=== PATIENT | male | born 1930 | race Caucasian/White ===

== ENCOUNTER 2016-10-28 05:27 | Inpatient (IN) | payer OTHER ==
[~2016-10-28] VITALS: Ht 167.6 cm; Wt 59.0 kg
[2016-10-28] MEDS ORDERED: NITROGLYCERIN OINT 1GM/INCH UDPKT TD STA (05:30)
[2016-10-28] MEDS ORDERED: ENALAPRIL 2.5MG/2ML VIAL 2ML IV STA (05:30)
[2016-10-28] MEDS ORDERED: FUROSEMIDE 40MG/4ML VIAL IV STA (05:30)
[2016-10-28] MEDS ORDERED: ASPIRIN 81MG TABLET PO STA (05:30)
[2016-10-28 05:50] LABS: BASOPHILS % 0.8 % (0.0-2.0); EOSINOPHILS % 3.5 % (0.0-5.0); HEMATOCRIT. 49.2 % (42.0-52.0); HEMOGLOBIN. 16.3 g/dL (14.0-18.0); LYMPHOCYTES % 32.1 % (20.0-50.0); MEAN CORPUSCULAR HEMOGLOBIN 29.8 pg (28.0-32.0); MEAN CORPUSCULAR VOLUME 90.3 fL (80.0-94.0); MEAN PLATELET VOLUME 9.3 fl (7.4-10.4); MONOCYTES % 4.9 % (2.0-8.0); NEUTROPHILS % 58.7 % (40.0-76.0); PLATELET 289 x1000/uL (130-400); RED BLOOD CELL COUNT 5.45 mill/uL (4.7-6.1); RED CELL DISTRIBUTION WIDTH 14.6 % (11.6-14.6); WHITE BLOOD COUNT 19.1 x1000/uL (4.5-11.0)
[2016-10-28 06:00] LABS: PARTIAL THROMBOPLASTIN TIME 24.5 sec (24.0-34.0); PROTHROMBIN TIME 10.6 sec
[2016-10-28 06:13] LABS: ANION GAP 15; CARBON DIOXIDE 22 mEq/L (21-32); CHLORIDE 107 mEq/L (98-107); UREA NITROGEN BLOOD 35 mg/dL (7-21); eGFR > 60 mL/min (>60)
[2016-10-28 06:14] LABS: ALBUMIN 3.5 g/dL (3.4-5.0); CALCIUM 8.6 mg/dL (8.5-10.1)
[2016-10-28 06:15] LABS: ALANINE AMINOTRANSFERASE 304 IU/L (13-61)
[2016-10-28 06:16] LABS: LIPASE 314 IU/L (73-393); NT PRO B-TYPE NATRIURETIC PEP 4847 pg/mL (5-125)
[2016-10-28] MEDS ORDERED: IPRATROPIUM/ALBUTEROL 0.5-3(2.5)MG/3ML NEB INH PRN (10:15)
[2016-10-28] MEDS ORDERED: DOCUSATE SODIUM 100MG CAPSULE PO PRN (10:15)
[2016-10-28] MEDS ORDERED: ENOXAPARIN 40MG/0.4ML SYR SUBCUT SCH (10:15)
[2016-10-28] MEDS ORDERED: NITROGLYCERIN 0.4MG TABLET SL SL PRN (10:15)
[2016-10-28] MEDS ORDERED: ZOLPIDEM TARTRATE 5MG TABLET PO PRN (10:15)
[2016-10-28] MEDS ORDERED: LORAZEPAM 2MG/ML CPJ IV PRN (10:15)
[2016-10-28] MEDS ORDERED: ONDANSETRON HCL 4MG/2ML VIAL IV PRN (10:15)
[2016-10-28] MEDS ORDERED: ACETAMINOPHEN 325MG TABLET PO PRN (10:15)
[2016-10-28] MEDS ORDERED: NA PHOS,M-B/NA PHOS,DI-BA ENEMA 118ML PR PRN (10:15)
[2016-10-28] MEDS ORDERED: CLONIDINE 0.1MG TABLET PO PRN (10:15)
[2016-10-28] MEDS ORDERED: TRAMADOL 50MG TABLET PO PRN (10:15)
[2016-10-28] MEDS ORDERED: GUAIFENESIN 200MG/10ML SUGAR FREE UDC PO PRN (10:15)
[2016-10-28] MEDS ORDERED: AZITHROMYCIN 500 MG in DEXT 5% WATER 250 ML IV SCH (10:15)
[2016-10-28] MEDS ORDERED: MAGNESIUM/ALUMINUM HYDROXIDE/SIMETHICONE 30ML UDC PO PRN (10:15)
[2016-10-28] MEDS ORDERED: DIPHENHYDRAMINE 50MG/ML VIAL IV PRN (10:15)
[2016-10-28] MEDS: LOSARTAN POTASSIUM 25 MG TABLET PO SCH ×2 (11:30→20:51)
[2016-10-28] MEDS: AMLODIPINE 2.5MG TABLET PO SCH ×2 (11:30→20:51)
[2016-10-28 12:05] LABS: BG BASE EXCESS -1.9 mmol/L (-2.0-2.0); BG CARBOXYHEMOGLOBIN 0.6 % (0.5-1.5); BG DEOXYHEMOGLOBIN 12.2 % (0.0-5.0); BG HCO3 ACT 20.8 mmol/L (22.0-26.0); BG OXYGEN SATURATION 87.7 % (92.0-98.5); BG OXYHEMOGLOBIN 87.2 % (94.0-97.0); BG PCO2 30.5 mmHg (35.0-45.0); BG PH 7.451 (7.350-7.450); BG PO2 48.7 mmHg (75.0-100.0); BG SAMPLE SITE RIGHT RADIAL; BG TOTAL HEMOGLOBIN 15.7 g/dL (12.0-18.0); BG VENT MODE ROOM AIR
[2016-10-28] MEDS: ENOXAPARIN 60MG/0.6ML SYR SUBCUT SCH ×2 (12:16→20:50)
[2016-10-28 14:05] LABS: GLUCOSE URINE NEGATIVE (NEGATIVE); KETONES URINE NEGATIVE (NEGATIVE); LEUKOCYTE ESTERASE URINE NEGATIVE (NEGATIVE); NITRITE URINE NEGATIVE (NEGATIVE); OCCULT BLOOD URINE TRACE (NEGATIVE); PROTEIN URINE NEGATIVE (NEGATIVE); UROBILINOGEN URINE 0.2 E.U./dL (0.2-1.0)
[2016-10-28 14:12] LABS: CLARITY URINE CLEAR (CLEAR); COLOR URINE YELLOW (YELLOW)
[2016-10-28 14:32] VITALS: BP_SYST 115; BP_SYST 140; BP_DIAS 64; BP_DIAS 80
[2016-10-28 14:42] LABS: BACTERIA URINE NONE SEEN; RBC URINE 0-2 /hpf (0-2); SQUAMOUS EPITHELIAL CELL URINE RARE /lpf (RARE/1+); WBC URINE NONE SEEN /hpf (0-2)
[2016-10-28 15:11] VITALS: BP 115/64
[2016-10-28 16:00] VITALS: BP 115/64
[2016-10-28 16:48] LABS: CREATINE KINASE MB FRACTION 5.2 ng/mL (0.5-3.6)
[2016-10-28 16:50] LABS: TROPONIN I 0.81 ng/mL (0.00-0.04)
[2016-10-28] MEDS ORDERED: CARVEDILOL 3.125 MG TABLET PO SCH (18:00)
[2016-10-28] MEDS: NITROGLYCERIN OINT 1GM/INCH UDPKT TD SCH (18:00)
[2016-10-28] MEDS: FUROSEMIDE 40MG/4ML VIAL IVP SCH (18:17)
[2016-10-28 18:18] VITALS: BP 132/87
[2016-10-28 20:00] VITALS: BP 101/67
[2016-10-28] MEDS: SPIRONOLACTONE 25MG TABLET PO SCH (20:50)
[2016-10-28] MEDS ORDERED: METOPROLOL TARTRATE 25MG TABLET PO SCH (21:00)
[2016-10-29] VITALS: BP 117/61
[2016-10-29] MEDS: NITROGLYCERIN OINT 1GM/INCH UDPKT TD SCH ×4 (00:19→18:12)
[2016-10-29 04:00] VITALS: BP 99/49
[2016-10-29 07:13] LABS: CHLORIDE 107 mEq/L (98-107); INDEX HEMOLYSI 3 (1-3); INDEX ICTERIC 1 (1-4); INDEX LIPEMIC 1 (1-3)
[2016-10-29 07:44] LABS: BASOPHILS % 0.6 % (0.0-2.0); EOSINOPHILS % 0.3 % (0.0-5.0); HEMATOCRIT. 39.8 % (42.0-52.0); HEMOGLOBIN. 13.4 g/dL (14.0-18.0); MEAN CORPUSCULAR HEMOGLOBIN 29.8 pg (28.0-32.0); MEAN CORPUSCULAR HGB CONC 33.7 g/dL (31.0-37.0); MEAN CORPUSCULAR VOLUME 88.5 fL (80.0-94.0); MEAN PLATELET VOLUME 9.6 fl (7.4-10.4); NEUTROPHILS % 73.1 % (40.0-76.0); PLATELET 231 x1000/uL (130-400); RED BLOOD CELL COUNT 4.49 mill/uL (4.7-6.1); RED CELL DISTRIBUTION WIDTH 14.5 % (11.6-14.6)
[2016-10-29 07:49] LABS: ALANINE AMINOTRANSFERASE 180 IU/L (13-61); ALBUMIN 2.5 g/dL (3.4-5.0); ANION GAP 14; CALCIUM 8.3 mg/dL (8.5-10.1); CARBON DIOXIDE 25 mEq/L (21-32); CREATINE KINASE 91 IU/L (39-308); CREATINE KINASE MB FRACTION 1.6 ng/mL (0.5-3.6); HDL CHOLESTEROL 64 mg/dL (40-59); MAGNESIUM 2.1 mg/dL (1.8-2.4); NT PRO B-TYPE NATRIURETIC PEP 17610 pg/mL (5-125); TRIGLYCERIDE 48 mg/dL (0-150); UREA NITROGEN BLOOD 36 mg/dL (7-21); eGFR 52 mL/min (>60)
[2016-10-29 07:50] LABS: LDL CHOLESTEROL 59 mg/dL (5-100)
[2016-10-29 08:43] LABS: TROPONIN I 0.53 ng/mL (0.00-0.04)
[2016-10-29 08:49] VITALS: BP 123/74
[2016-10-29] MEDS ORDERED: CEFTRIAXONE 1 G PREMIX 50 ML IV SCH (09:00)
[2016-10-29] MEDS: FUROSEMIDE 40MG/4ML VIAL IVP SCH ×2 (09:13→17:13)
[2016-10-29] MEDS: LOSARTAN POTASSIUM 25 MG TABLET PO SCH ×2 (09:14→21:59)
[2016-10-29] MEDS: PANTOPRAZOLE SODIUM 40 MG/VIAL IV SCH (09:14)
[2016-10-29] MEDS: SPIRONOLACTONE 25MG TABLET PO SCH ×2 (09:14→21:59)
[2016-10-29] MEDS: AMLODIPINE 2.5MG TABLET PO SCH ×2 (09:15→22:00)
[2016-10-29] MEDS: ZINC SULFATE 220 MG ( 50 ) CAPSULE PO SCH (09:15)
[2016-10-29] MEDS: ASPIRIN 325MG EC TABLET PO SCH (09:15)
[2016-10-29] MEDS: ENOXAPARIN 60MG/0.6ML SYR SUBCUT SCH ×2 (09:24→22:00)
[2016-10-29 12:00] VITALS: BP 132/70
[2016-10-29] MEDS: AZITHROMYCIN 500 MG in DEXT 5% WATER 250 ML IV SCH (13:47)
[2016-10-29 16:44] VITALS: BP 114/55
[2016-10-29 20:00] VITALS: BP 140/68
[2016-10-30] VITALS (7 sets, daily range): BP systolic 112–129; BP diastolic 59–74
[2016-10-30] MEDS: NITROGLYCERIN OINT 1GM/INCH UDPKT TD SCH ×4 (00:16→18:43)
[2016-10-30] MEDS: FUROSEMIDE 40MG/4ML VIAL IVP SCH (06:22)
[2016-10-30] MEDS: CEFTRIAXONE 1 G PREMIX 50 ML IV SCH (08:36)
[2016-10-30] MEDS: PANTOPRAZOLE SODIUM 40 MG/VIAL IV SCH (08:37)
[2016-10-30] MEDS: AMLODIPINE 2.5MG TABLET PO SCH ×2 (08:37→21:00)
[2016-10-30] MEDS: ZINC SULFATE 220 MG ( 50 ) CAPSULE PO SCH (08:37)
[2016-10-30] MEDS: ENOXAPARIN 60MG/0.6ML SYR SUBCUT SCH ×2 (08:37→21:13)
[2016-10-30] MEDS: LOSARTAN POTASSIUM 25 MG TABLET PO SCH (08:38)
[2016-10-30] MEDS: SPIRONOLACTONE 25MG TABLET PO SCH ×2 (08:38→21:12)
[2016-10-30] MEDS: ASPIRIN 325MG EC TABLET PO SCH (08:38)
[2016-10-30 09:11] LABS: BASOPHILS % 0.6 % (0.0-2.0); EOSINOPHILS % 0.6 % (0.0-5.0); HEMATOCRIT. 40.2 % (42.0-52.0); HEMOGLOBIN. 13.6 g/dL (14.0-18.0); LYMPHOCYTES % 17.2 % (20.0-50.0); MEAN CORPUSCULAR HEMOGLOBIN 29.6 pg (28.0-32.0); MEAN CORPUSCULAR HGB CONC 33.7 g/dL (31.0-37.0); MEAN CORPUSCULAR VOLUME 87.8 fL (80.0-94.0); MEAN PLATELET VOLUME 9.1 fl (7.4-10.4); MONOCYTES % 9.1 % (2.0-8.0); NEUTROPHILS % 72.5 % (40.0-76.0); PLATELET 247 x1000/uL (130-400); RED BLOOD CELL COUNT 4.58 mill/uL (4.7-6.1); RED CELL DISTRIBUTION WIDTH 13.9 % (11.6-14.6); WHITE BLOOD COUNT 12.8 x1000/uL (4.5-11.0)
[2016-10-30 09:34] LABS: ALANINE AMINOTRANSFERASE 111 IU/L (13-61); ALBUMIN 2.8 g/dL (3.4-5.0); ANION GAP 10; CALCIUM 8.9 mg/dL (8.5-10.1); CARBON DIOXIDE 35 mEq/L (21-32); CHLORIDE 99 mEq/L (98-107); INDEX HEMOLYSI 1 (1-3); INDEX ICTERIC 1 (1-4); INDEX LIPEMIC 1 (1-3); MAGNESIUM 2.2 mg/dL (1.8-2.4); NT PRO B-TYPE NATRIURETIC PEP 6309 pg/mL (5-125); UREA NITROGEN BLOOD 38 mg/dL (7-21); eGFR 44 mL/min (>60)
[2016-10-30] MEDS: AZITHROMYCIN 500 MG in DEXT 5% WATER 250 ML IV SCH (10:24)
[2016-10-30] MEDS ORDERED: REGADENOSON 0.4 MG/5 ML IV ONE (14:45)
[2016-10-31] VITALS: BP 112/58
[2016-10-31] MEDS: NITROGLYCERIN OINT 1GM/INCH UDPKT TD SCH ×3 (00:43→12:00)
[2016-10-31 04:00] VITALS: BP 103/45
[2016-10-31 07:15] LABS: BASOPHILS % 0.7 % (0.0-2.0); EOSINOPHILS % 2.8 % (0.0-5.0); HEMATOCRIT. 40.1 % (42.0-52.0); HEMOGLOBIN. 13.6 g/dL (14.0-18.0); MEAN CORPUSCULAR HEMOGLOBIN 29.6 pg (28.0-32.0); MEAN CORPUSCULAR HGB CONC 33.9 g/dL (31.0-37.0); MEAN CORPUSCULAR VOLUME 87.5 fL (80.0-94.0); MEAN PLATELET VOLUME 9.1 fl (7.4-10.4); MONOCYTES % 9.2 % (2.0-8.0); NEUTROPHILS % 64.3 % (40.0-76.0); PLATELET 251 x1000/uL (130-400); RED BLOOD CELL COUNT 4.59 mill/uL (4.7-6.1); RED CELL DISTRIBUTION WIDTH 13.8 % (11.6-14.6); WHITE BLOOD COUNT 10.4 x1000/uL (4.5-11.0)
[2016-10-31 08:07] VITALS: BP 117/62
[2016-10-31] MEDS ORDERED: REGADENOSON 0.4 MG/5 ML IV ONE (08:22)
[2016-10-31 08:44] LABS: ALANINE AMINOTRANSFERASE 75 IU/L (13-61); ALBUMIN 2.6 g/dL (3.4-5.0); ANION GAP 16; CALCIUM 8.3 mg/dL (8.5-10.1); CARBON DIOXIDE 28 mEq/L (21-32); CHLORIDE 98 mEq/L (98-107); INDEX HEMOLYSI 1 (1-3); INDEX ICTERIC 1 (1-4); INDEX LIPEMIC 1 (1-3); MAGNESIUM 2.3 mg/dL (1.8-2.4); NT PRO B-TYPE NATRIURETIC PEP 2319 pg/mL (5-125); TROPONIN I 0.11 ng/mL (0.00-0.04); UREA NITROGEN BLOOD 38 mg/dL (7-21); eGFR 57 mL/min (>60)
[2016-10-31] MEDS ORDERED: AZITHROMYCIN 500 MG TABLET PO SCH (09:00)
[2016-10-31] MEDS: AMLODIPINE 2.5MG TABLET PO SCH (09:00)
[2016-10-31] MEDS ORDERED: FAMOTIDINE 20MG TABLET PO SCH (09:00)
[2016-10-31] MEDS: ASPIRIN 325MG EC TABLET PO SCH (10:26)
[2016-10-31] MEDS: ZINC SULFATE 220 MG ( 50 ) CAPSULE PO SCH (10:26)
[2016-10-31] MEDS: ENOXAPARIN 60MG/0.6ML SYR SUBCUT SCH (10:27)
[2016-10-31] MEDS: SPIRONOLACTONE 25MG TABLET PO SCH (10:27)
[2016-10-31] MEDS: CEFTRIAXONE 1 G PREMIX 50 ML IV SCH (10:27)
[2016-10-31 12:30] VITALS: BP 115/58
[2016-10-31] MEDS ORDERED: ASPIRIN 81MG EC TABLET PO SCH (13:00)
[2016-10-31 13:55] VITALS: BP 115/58
== END 2016-10-31 16:00 | disposition home or self-care (01) | DRG 190 ==
LOC: ER 05:29 → 5WST 05:56
PROVIDERS: ADMIT Internal Medicine; ATTEND Internal Medicine
PROC: 5A09357 Assistance with Respiratory Ventilation, Less than 24 Consecutive Hours, Continuous Positive Airway Pressure (ICD-10-PCS; principal; 2016-10-28)
DX: I21.4 Non-ST elevation (NSTEMI) myocardial infarction (principal); J96.01 Acute respiratory failure with hypoxia; E43 Unspecified severe protein-calorie malnutrition; I50.43 Acute on chronic combined systolic (congestive) and diastolic (congestive) heart failure; J18.9 Pneumonia, unspecified organism; G30.9 Alzheimer's disease, unspecified; I42.9 Cardiomyopathy, unspecified; I11.0 Hypertensive heart disease with heart failure; F02.80 Dementia in other diseases classified elsewhere, unspecified severity, without behavioral disturbance, psychotic disturbance, mood disturbance, and anxiety; R74.0 Nonspecific elevation of levels of transaminase and lactic acid dehydrogenase [LDH]; Z87.891 Personal history of nicotine dependence; Z68.21 Body mass index [BMI] 21.0-21.9, adult
CPT/HCPCS: 36415; 36600; 71010; 76700; 78452; 80053; 80061; 81001; 82375; 82550; 82553; 82805; 83036; 83690; 83735; 83880; 84443; 84484; 85025; 85379; 85610; 85730; 87040; 87086; 93005; 93017; 93306; 93970; 94660; 96365; 96375; 99291; A9500; C9113; J0456; J0696; J1650; J1940; J2785; J3490; J7050; J7060

== ENCOUNTER 2020-03-03 02:07 | Inpatient (IN) | payer MEDICAID, OTHER ==
[~2020-03-03] VITALS: Ht 165.1 cm; Wt 69.9 kg
[2020-03-03] MEDS ORDERED: FUROSEMIDE 100MG/10ML VIAL IVP ONE (03:00)
[2020-03-03 03:58] LABS: BASOPHILS % 0.7 % (0.0-2.0); EOSINOPHILS % 2.6 % (0.0-5.0); HEMATOCRIT. 43.7 % (42.0-52.0); HEMOGLOBIN. 14.6 g/dL (14.0-18.0); LYMPHOCYTES % 17.2 % (20.0-50.0); MEAN CORPUSCULAR HEMOGLOBIN 30.2 pg (28.0-32.0); MEAN CORPUSCULAR VOLUME 90.5 fL (80.0-94.0); MEAN PLATELET VOLUME 8.2 fl (7.4-10.4); MONOCYTES % 5.6 % (2.0-8.0); NEUTROPHILS % 73.9 % (40.0-76.0); PLATELET 227 x1000/uL (130-400); RED BLOOD CELL COUNT 4.82 mill/uL (4.7-6.1)
[2020-03-03 04:07] LABS: CHLORIDE 105 mEq/L (98-107)
[2020-03-03] MEDS ORDERED: ASPIRIN 81MG TABLET PO SCH (04:30)
[2020-03-03] MEDS ORDERED: LORAZEPAM 1MG TABLET PO SCH (04:45)
[2020-03-03 10:00] VITALS: BP 122/59
[2020-03-03] MEDS ORDERED: GUAIFENESIN 200MG/10ML SUGAR FREE UDC PO PRN (11:15)
[2020-03-03] MEDS ORDERED: NA PHOS,M-B/NA PHOS,DI-BA ENEMA 118ML PR PRN (11:15)
[2020-03-03] MEDS ORDERED: HYDROCODONE/ACETAMINOPHEN 5/325MG TABLET PO PRN (11:15)
[2020-03-03] MEDS ORDERED: ONDANSETRON HCL 4MG/2ML INJ IV PRN (11:15)
[2020-03-03] MEDS ORDERED: CLONIDINE 0.1MG TABLET PO PRN (11:15)
[2020-03-03] MEDS ORDERED: ACETAMINOPHEN 650MG/20.3ML UDC GT PRN (11:15)
[2020-03-03] MEDS ORDERED: LORAZEPAM 0.5MG TABLET PO PRN (11:15)
[2020-03-03] MEDS ORDERED: MAGNESIUM/ALUMINUM HYDROXIDE/SIMETHICONE 30ML UDC PO PRN (11:15)
[2020-03-03] MEDS ORDERED: DOCUSATE SODIUM 100MG CAPSULE PO PRN (11:15)
[2020-03-03] MEDS ORDERED: DIPHENHYDRAMINE 50MG/ML VIAL IV PRN (11:15)
[2020-03-03] MEDS ORDERED: IPRATROPIUM/ALBUTEROL 0.5-3(2.5)MG/3ML NEB NEB PRN (11:15)
[2020-03-03 11:40] LABS: BG BASE EXCESS 0.8 mmol/L (-2.0-2.0); BG DEOXYHEMOGLOBIN 5.3 % (0.0-5.0); BG FRACTION INSPIRED OXYGEN 21; BG METHEMOGLOBIN 0.3 % (0.0-1.5); BG OXYGEN SATURATION 94.6 % (92.0-98.5); BG OXYHEMOGLOBIN 93.4 % (94.0-97.0); BG PCO2 38.9 mmHg (35.0-45.0); BG PH 7.426 (7.350-7.450); BG PO2 68.4 mmHg (75.0-100.0); BG SAMPLE SITE RIGHT RADIAL; BG TOTAL HEMOGLOBIN 16.4 g/dL (12.0-18.0); BG VENT MODE ROOM AIR
[2020-03-03 12:00] VITALS: BP 152/71
[2020-03-03 12:50] LABS: HEMATOCRIT 45.5 % (42.0-52.0); HEMOGLOBIN 15.5 g/dL (14.0-18.0); MEAN CORPUSCULAR HEMOGLOBIN 30.2 pg (28.0-32.0); MEAN CORPUSCULAR VOLUME 88.6 fL (80.0-94.0); PLATELET 240 x1000/uL (130-400); RED BLOOD CELL COUNT 5.13 mill/uL (4.7-6.1); RED CELL DISTRIBUTION WIDTH 13.9 % (11.6-14.6)
[2020-03-03 12:55] LABS: CHLORIDE 105 mEq/L (98-107)
[2020-03-03] MEDS: CARVEDILOL 3.125 MG TABLET PO SCH ×2 (13:04→20:56)
[2020-03-03] MEDS: ENOXAPARIN 30MG/0.3ML SYR SUBCUT SCH (13:05)
[2020-03-03 13:10] LABS: PROTHROMBIN TIME 10.7 sec (9.6-11.0)
[2020-03-03] MEDS: LORAZEPAM 2MG/ML CPJ IV PRN ×2 (14:10→23:14)
[2020-03-03 16:00] VITALS: BP 139/73
[2020-03-03 16:30] LABS: CREATINE KINASE MB FRACTION 2.5 ng/mL (0.5-3.6)
[2020-03-03] MEDS ORDERED: POTASSIUM CHLORIDE 10MEQ TABLET SR PO NR (17:52)
[2020-03-03 20:00] VITALS: BP 167/111
[2020-03-03] MEDS: FAMOTIDINE 20MG TABLET PO SCH (20:56)
[2020-03-03] MEDS: PIPERACILLIN/TAZOBACTAM 2.25 G in DEXTROSE 5% WATER 50 ML IV SCH (21:26)
[2020-03-04] VITALS: BP 152/76
[2020-03-04 01:15] LABS: CREATINE KINASE MB FRACTION 4.3 ng/mL (0.5-3.6)
[2020-03-04] MEDS: PIPERACILLIN/TAZOBACTAM 2.25 G in DEXTROSE 5% WATER 50 ML IV SCH ×4 (03:07→20:44)
[2020-03-04 04:00] VITALS: BP 169/79
[2020-03-04 07:01] LABS: BASOPHILS % 0.4 % (0.0-2.0); HEMATOCRIT. 49.9 % (42.0-52.0); HEMOGLOBIN. 16.7 g/dL (14.0-18.0); LYMPHOCYTES % 15.1 % (20.0-50.0); MEAN CORPUSCULAR HEMOGLOBIN 30.5 pg (28.0-32.0); MEAN CORPUSCULAR VOLUME 90.9 fL (80.0-94.0); MEAN PLATELET VOLUME 8.5 fl (7.4-10.4); MONOCYTES % 8.9 % (2.0-8.0); NEUTROPHILS % 74.6 % (40.0-76.0); PLATELET 240 x1000/uL (130-400); RED CELL DISTRIBUTION WIDTH 14.2 % (11.6-14.6)
[2020-03-04 08:00] VITALS: BP 128/53
[2020-03-04] MEDS: CARVEDILOL 3.125 MG TABLET PO SCH ×2 (09:30→20:44)
[2020-03-04] MEDS: ASPIRIN 81MG EC TABLET PO SCH (09:30)
[2020-03-04] MEDS: FUROSEMIDE 40MG/4ML VIAL IVP SCH (09:30)
[2020-03-04] MEDS: ENOXAPARIN 30MG/0.3ML SYR SUBCUT SCH (09:31)
[2020-03-04] MEDS: LORAZEPAM 2MG/ML CPJ IV PRN ×2 (11:36→21:05)
[2020-03-04 11:59] LABS: CHLORIDE 107 mEq/L (98-107)
[2020-03-04 12:00] VITALS: BP 108/50
[2020-03-04 12:10] LABS: LDL CHOLESTEROL 112 mg/dL (5-100)
[2020-03-04 12:13] LABS: HDL CHOLESTEROL 39 mg/dL (40-59)
[2020-03-04 12:19] LABS: T4 FREE 1.45 ng/dL (0.76-1.46)
[2020-03-04] MEDS: LOSARTAN POTASSIUM 25 MG TABLET PO SCH (13:15)
[2020-03-04 14:45] LABS: COLOR URINE YELLOW (YELLOW); KETONES URINE NEGATIVE (NEGATIVE); LEUKOCYTE ESTERASE URINE NEGATIVE (NEGATIVE); NITRITE URINE NEGATIVE (NEGATIVE); OCCULT BLOOD URINE 3+ (NEGATIVE); PROTEIN URINE NEGATIVE (NEGATIVE); SPECIFIC GRAVITY URINE 1.009 (1.005-1.030); UROBILINOGEN URINE 0.2 E.U./dL (0.2-1.0)
[2020-03-04 14:46] LABS: CLARITY URINE HAZY (CLEAR)
[2020-03-04 16:00] VITALS: BP 139/58
[2020-03-04 17:35] LABS: BG BASE EXCESS 1.5 mmol/L (-2.0-2.0); BG CARBOXYHEMOGLOBIN 0.6 % (0.5-1.5); BG DEOXYHEMOGLOBIN 3.1 % (0.0-5.0); BG FRACTION INSPIRED OXYGEN 28; BG METHEMOGLOBIN 0.2 % (0.0-1.5); BG OXYGEN SATURATION 96.9 % (92.0-98.5); BG OXYHEMOGLOBIN 96.1 % (94.0-97.0); BG PCO2 36.5 mmHg (35.0-45.0); BG PH 7.454 (7.350-7.450); BG PO2 83.8 mmHg (75.0-100.0); BG SAMPLE SITE RIGHT RADIAL; BG TOTAL HEMOGLOBIN 17.1 g/dL (12.0-18.0); BG VENT MODE NASAL CANNULA
[2020-03-04 20:00] VITALS: BP 153/75
[2020-03-04 20:41] LABS: BASOPHILS % 0.8 % (0.0-2.0); EOSINOPHILS % 0.7 % (0.0-5.0); HEMATOCRIT. 48.1 % (42.0-52.0); HEMOGLOBIN. 15.9 g/dL (14.0-18.0); LYMPHOCYTES % 19.3 % (20.0-50.0); MEAN CORPUSCULAR HEMOGLOBIN 30.1 pg (28.0-32.0); MEAN CORPUSCULAR VOLUME 90.9 fL (80.0-94.0); MEAN PLATELET VOLUME 8.7 fl (7.4-10.4); MONOCYTES % 11.8 % (2.0-8.0); NEUTROPHILS % 67.4 % (40.0-76.0); PLATELET 241 x1000/uL (130-400); RED BLOOD CELL COUNT 5.29 mill/uL (4.7-6.1); RED CELL DISTRIBUTION WIDTH 13.9 % (11.6-14.6)
[2020-03-04] MEDS: FAMOTIDINE 20MG TABLET PO SCH (20:44)
[2020-03-05] VITALS: BP 142/61
[2020-03-05] MEDS ORDERED: VANCOMYCIN 1250MG in DEXTROSE 5% WATER 250ML IV SCH ×2
[2020-03-05] MEDS: PIPERACILLIN/TAZOBACTAM 2.25 G in DEXTROSE 5% WATER 50 ML IV SCH ×3 (02:38→14:00)
[2020-03-05 04:00] VITALS: BP 155/55
[2020-03-05] MEDS: LORAZEPAM 2MG/ML CPJ IV PRN (06:13)
[2020-03-05 07:43] LABS: HEMATOCRIT. 48.4 % (42.0-52.0); HEMOGLOBIN. 16.5 g/dL (14.0-18.0); LYMPHOCYTES % 20.7 % (20.0-50.0); MEAN CORPUSCULAR HEMOGLOBIN 30.5 pg (28.0-32.0); MEAN CORPUSCULAR VOLUME 89.5 fL (80.0-94.0); MEAN PLATELET VOLUME 9.2 fl (7.4-10.4); MONOCYTES % 8.4 % (2.0-8.0); NEUTROPHILS % 67.9 % (40.0-76.0); PLATELET 280 x1000/uL (130-400); RED BLOOD CELL COUNT 5.41 mill/uL (4.7-6.1); RED CELL DISTRIBUTION WIDTH 13.9 % (11.6-14.6)
[2020-03-05 08:00] VITALS: BP 161/53
[2020-03-05] MEDS: CARVEDILOL 3.125 MG TABLET PO SCH (10:13)
[2020-03-05] MEDS: LOSARTAN POTASSIUM 25 MG TABLET PO SCH (10:13)
[2020-03-05] MEDS: ASPIRIN 81MG EC TABLET PO SCH (10:13)
[2020-03-05] MEDS: FUROSEMIDE 40MG/4ML VIAL IVP SCH (10:13)
[2020-03-05] MEDS: ENOXAPARIN 30MG/0.3ML SYR SUBCUT SCH (10:14)
[2020-03-05 12:00] VITALS: BP 104/87
[2020-03-05 15:28] VITALS: BP 104/87
[2020-03-05] MEDS ORDERED: POTASSIUM CHLORIDE 20MEQ TABLET SR PO SCH (16:00)
[2020-03-05] MEDS ORDERED: VANCOMYCIN 1 G PREMIX 200 ML IV SCH (18:00)
== END 2020-03-05 16:09 | disposition home or self-care (01) | DRG 52 ==
LOC: ER 02:07 → 5WST 04:39 → ENRESERV 08:18
PROVIDERS: ADMIT Internal Medicine; ATTEND Internal Medicine
DX: G93.49 Other encephalopathy (principal); I13.0 Hypertensive heart and chronic kidney disease with heart failure and stage 1 through stage 4 chronic kidney disease, or unspecified chronic kidney disease; F03.90 Unspecified dementia, unspecified severity, without behavioral disturbance, psychotic disturbance, mood disturbance, and anxiety; I50.33 Acute on chronic diastolic (congestive) heart failure; R09.02 Hypoxemia; R17 Unspecified jaundice; R06.03 Acute respiratory distress; R18.8 Other ascites; E11.65 Type 2 diabetes mellitus with hyperglycemia; R00.0 Tachycardia, unspecified; N17.9 Acute kidney failure, unspecified; N18.9 Chronic kidney disease, unspecified; E11.22 Type 2 diabetes mellitus with diabetic chronic kidney disease; R65.11 Systemic inflammatory response syndrome (SIRS) of non-infectious origin with acute organ dysfunction
CPT/HCPCS: 36415; 36600; 71045; 80048; 80053; 80061; 80076; 81003; 82140; 82375; 82550; 82553; 82805; 82962; 83036; 83880; 84439; 84443; 84484; 85025; 85027; 93005; 93306; 99291; J1650; J1940; J2060; J2543; J3370; J7060